=== PATIENT | female | born 1940 | race Caucasian/White ===

== ENCOUNTER 2017-03-23 21:47 | Emergency (ER) | payer OTHER ==
[2017-03-23 21:55] VITALS: BP 154/97; BMI 32.3
--- NOTE | 2017-03-24 00:35 | DR.GENAD ---
HPI - Complaint/Symptoms Chief Complaint:: PT C/O N/V/D AND "LEAKING URINE" ONSET THIS AM. C/O ABD AND BACK PAIN. STATES HER ARTHRITIS IS ALSO ACTING UP Self Treatment fo Chief Complaint: ALEVE WITH NO RELIEF - Source History Provided: Patient - Mode of Arrival Mode of Arrival: Ambulatory - Timing Onset of Chief Complaint: 03/23/17 PMH - PMH Past Medical History: Yes Past Medical History: Diabetes, Hypertension Past Surgical History: Yes Surgical History: Ortho Surgery Past Surgical History Comment: STENTS IN HEART - Family History History of Family Medical Conditions: Yes Family Medical History: Diabetes Mellitus, Cancer, Hypertension - infectious screening Have you traveled outside the country in the last 6 months?: No ROS - Review of Systems Eyes: No Symptoms Reported ENTM: No Symptoms Reported Respiratoy: No Symptoms Reported Cardiovascular: No Symptoms Reported Gastrointestinal/Abdominal: No Symptoms Reported Genitourinary: No Symptoms Reported Neurological: No Symptoms Reported Musculoskeletal: No Symptoms Reported Integumentary: No Symptoms Reported Hematologic/Lymphatic: No Symptoms Reported Endocrine: No Symptoms Reported Psychiatric: No Symptoms Reported All Other Systems: Reviewed and Negative PE - Vital Signs Vitals: Temperature 98.8 F Pulse Rate 79 Respiratory Rate 18 Blood Pressure 154/97 O2 Sat by Pulse Oximetry 96 - General General Appearance: Alert, In No Apparent Distress - Head Head Exam: Normal Inspection, Atraumatic - Eyes Eye exam: Normal Appearance, PERRL, EOMI - ENT ENT Exam: Normal Exam External Ear Exam: Normal External Inspection TM/Canal Exam: Bilateral Normal Nose Exam: Normal Nose Exam Mouth Exam: Normal Inspection Throat Exam: Normal Inspection - Neck Neck Exam: Normal Inspection, Full ROM - Chest Chest Inspection: Normal Inspection, Symmetric Chest Wall Rise - Respiratory Respiratory Exam: Normal Lung Sounds Bilat Respiratory Exam: Bilateral Clear to Auscultation - Cardiovascular Cardiovascular Exam: Regular Rate, Normal Rhythm - Abdominal Exam Abdominal Exam: Normal Inspection, Normal Bowel Sounds, Distention Abdominal Tenderness: Suprapubic - Extremities Extremities Exam: Normal Inspection, Full ROM - Back Back Exam: Normal Inspection, Full ROM - Neurologic Neurological Exam: Alert, Oriented X3, CN II-XII Intact - Psychiatric Psychiatric Exam: Normal Affect, Normal Mood - Skin Skin Exam: Warm, Dry, Intact ROR - Labs Reviewed Laboratory Results Reviewed?: Yes (low potassium) Result Diagrams: 03/24/17 01:20 03/24/17 01:20 Laboratory: WBC 10.3 X10^3/uL (3.6-10.0) H 03/24/17 01:20 RBC 5.17 X10^6/uL (3.5-5.4) 03/24/17 01:20 Hgb 14.0 g/dL (12.0-16.0) 03/24/17 01:20 Hct 40.7 % (36.0-47.0) 03/24/17 01:20 MCV 78.7 fL (80.0-100.0) L 03/24/17 01:20 MCH 27.1 pg (27.0-34.0) 03/24/17 01:20 MCHC 34.4 g/dL (33.0-35.0) 03/24/17 01:20 RDW 16.3 % (11.6-16.5) 03/24/17 01:20 Plt Count 230 X10^3/uL (150.0-450.0) 03/24/17 01:20 MPV 10.1 fL (7.4-11.0) 03/24/17 01:20 Neut % 75.4 % (42.0-75.0) H 03/24/17 01:20 Lymph % 14.8 % (21.0-51.0) L 03/24/17 01:20 [place] % 8.6 % (0.0-13.0) 03/24/17 01:20 Eos % 0.6 % (0.9-2.9) L 03/24/17 01:20 Baso % 0.6 % (0.2-1.0) 03/24/17 01:20 Neut # 7.8 x10^3/uL (2.2-4.8) H 03/24/17 01:20 Lymph # 1.5 X10^3/uL (1.3-2.9) 03/24/17 01:20 [place] # 0.9 x10^3/uL (0.3-0.8) H 03/24/17 01:20 Eos # 0.1 x10^3/uL (0.0-0.2) 03/24/17 01:20 Baso # 0.1 X10^3/uL (0.0-0.1) 03/24/17 01:20 Absolute Nucleated RBC 0.0 /100WBC 03/24/17 01:20 Sodium 141 mmol/L (136-145) 03/24/17 01:20 Corrected Sodium 141 mmol/L (136-145) 03/24/17 01:20 Potassium 3.3 mmol/L (3.5-5.1) L 03/24/17 01:20 Chloride 101 mmol/L (98-107) 03/24/17 01:20 Carbon Dioxide 28.2 mmol/L (21-32) 03/24/17 01:20 BUN 22 mg/dL (7-18) H 03/24/17 01:20 Creatinine 1.00 mg/dL (0.55-1.02) 03/24/17 01:20 Est GFR (MDRD) Af Amer > 60 (>60) 03/24/17 01:20 Est GFR (MDRD) Non-Af 57 (>60) L 03/24/17 01:20 Glucose 120 mg/dL (65-99) H 03/24/17 01:20 Calcium 7.8 mg/dL (8.5-10.1) L 03/24/17 01:20 Corrected Calcium TNP 03/24/17 01:20 Total Bilirubin 0.50 mg/dL (0.2-1.0) 03/24/17 01:20 AST 28 Units/L (15-37) 03/24/17 01:20 ALT 32 Units/L (12-78) 03/24/17 01:20 Alkaline Phosphatase 86 Units/L (46-116) 03/24/17 01:20 C-Reactive Protein 45.90 mg/L (0-3.0) H 03/24/17 01:20 Total Protein 7.1 g/dL (6.4-8.2) 03/24/17 01:20 Albumin 3.4 g/dL (3.4-5.0) 03/24/17 01:20 Globulin 3.7 g/dL (2.5-4.5) 03/24/17 01:20 Albumin/Globulin Ratio 0.9 Ratio (1.1-2.1) L 03/24/17 01:20 Specimen Type Clean catch urine 03/24/17 02:23 Urine Color Dark yellow (YELLOW) 03/24/17 02:23 Urine Appearance Slightly hazy (CLEAR) 03/24/17 02:23 Urine pH 5.0 (5.0 - 8.0) 03/24/17 02:23 Ur Specific [place] 1.015 (1.000-1.030) 03/24/17 02:23 Urine Protein 3+ (NEGATIVE) 03/24/17 02:23 Urine Glucose (UA) Negative (NEGATIVE) 03/24/17 02:23 Urine Ketones Negative (NEGATIVE) 03/24/17 02:23 Urine Occult Blood Negative (NEGATIVE) 03/24/17 02:23 Urine Nitrite Negative (NEGATIVE) 03/24/17 02:23 Urine Bilirubin 1+ (NEGATIVE) 03/24/17 02:23 Urine Urobilinogen 2+ (NORMAL) 03/24/17 02:23 Ur Leukocyte Esterase 1+ (NEGATIVE) 03/24/17 02:23 Urine RBC 0-2 /HPF (NEGATIVE) 03/24/17 02:23 Urine WBC 6-8 /HPF (NEGATIVE) 03/24/17 02:23 Ur Squamous Epith Cells Moderate /HPF (NEGATIVE) 03/24/17 02:23 Urine Bacteria 1+ /HPF (NEGATIVE) 03/24/17 02:23 Hyaline Casts Few /LPF (NEGATIVE) 03/24/17 02:23 Urine Mucus Many /HPF (NEGATIVE) 03/24/17 02:23 Ur Culture Indicated? Yes/culture set up 03/24/17 02:23 H. pylori IgG Antibody Negative (NEGATIVE) 03/24/17 01:20 Streptococcus Screen Negative (NEGATIVE) 03/24/17 01:05 - XRAY XRAY Interpreted by: Radiologist (Flat/Upright Abdomen: Demonstrates a normal bowel gas pattern inderterminate small calcifications lateral to the left L1 transverse process this reppresents calcifications pancrease versus renal stones , The bony structures are grossly intact.; Chest: cardiomegaly without acute airspace disease or CHF) - Diagnosis Discharge Problem: Acute viral disease - Discharge Plan Condition: Stable - Follow ups/Referrals Follow ups/Referrals: Lynne Mcdonald [Primary Care Provider] - 3 days - Instructions
[2017-03-24] MEDS ORDERED: NS 1000 ML 1,000 ML IV ONE (00:37)
[2017-03-24] MEDS ORDERED: BENTYL I.M. INJ 10 MG IM ONE ×2 (00:38→00:40)
[2017-03-24] MEDS ORDERED: NS 1000 ML 1,000 ML ONE (00:39)
[2017-03-24 01:23] LABS: BASOPHILS # (AUTO) 0.1 X10^3/uL (0.0-0.1); BASOPHILS % (AUTO) 0.6 % (0.2-1.0); EOSINOPHILS # (AUTO) 0.1 x10^3/uL (0.0-0.2); EOSINOPHILS % (AUTO) 0.6 % (0.9-2.9); HEMATOCRIT 40.7 % (36.0-47.0); LYMPHOCYTES # (AUTO) 1.5 X10^3/uL (1.3-2.9); LYMPHOCYTES % (AUTO) 14.8 % (21.0-51.0); MEAN CORPUSCULAR HEMOGLOBIN 27.1 pg (27.0-34.0); MEAN CORPUSCULAR HGB CONC 34.4 g/dL (33.0-35.0); MEAN CORPUSCULAR VOLUME 78.7 fL (80.0-100.0); MEAN PLATELET VOLUME 10.1 fL (7.4-11.0); MONOCYTES # (AUTO) 0.9 x10^3/uL (0.3-0.8); MONOCYTES % (AUTO) 8.6 % (0.0-13.0); NEUTROPHILS # (AUTO) 7.8 x10^3/uL (2.2-4.8); NEUTROPHILS % (AUTO) 75.4 % (42.0-75.0); PLATELET COUNT 230 X10^3/uL (150.0-450.0); RED BLOOD COUNT 5.17 X10^6/uL (3.5-5.4); RED CELL DISTRIBUTION WIDTH 16.3 % (11.6-16.5); WHITE BLOOD COUNT 10.3 X10^3/uL (3.6-10.0)
[2017-03-24 01:43] LABS: ALANINE AMINOTRANSFERASE 32 Units/L (12-78); ALBUMIN 3.4 g/dL (3.4-5.0); ALKALINE PHOSPHATASE 86 Units/L (46-116); ASPARTATE AMINO TRANSFERASE 28 Units/L (15-37); BLOOD UREA NITROGEN 22 mg/dL (7-18); CALCIUM 7.8 mg/dL (8.5-10.1); CARBON DIOXIDE 28.2 mmol/L (21-32); CHLORIDE 101 mmol/L (98-107); COR NA(FOR HYPERGLY) 141 mmol/L (136-145); SODIUM 141 mmol/L (136-145); TOTAL PROTEIN 7.1 g/dL (6.4-8.2); eGFR BLACK RACES > 60 (>60); eGFR NON BLACK RACES 57 (>60)
[2017-03-24] MEDS ORDERED: POTASSIUM CHLORIDE LIQ 20 MEQ UDC PO ONE (02:10)
[2017-03-24] MEDS ORDERED: ZOFRAN INJ 4 MG VIAL IVP ONE (02:16)
[2017-03-24] MEDS ORDERED: ZOFRAN INJ 4 MG VIAL ONE (02:18)
[2017-03-24] MEDS ORDERED: POTASSIUM CHLORIDE LIQ 20 MEQ UDC ONE (02:18)
[2017-03-24 02:52] LABS: BILIRUBIN,URINE 1+ (NEGATIVE); BLOOD/HEMOGLOBIN,URINE NEGATIVE (NEGATIVE); GLUCOSE, URINE NEGATIVE (NEGATIVE); KETONES,URINE NEGATIVE (NEGATIVE); LEUKOCYTE ESTERASE ,URINE 1+ (NEGATIVE); NITRITES,URINE NEGATIVE (NEGATIVE); PROTEIN,URINE 3+ (NEGATIVE); UROBILINOGEN,URINE 2+ (NORMAL)
--- NOTE | 2017-03-24 02:58 | RAD ---
Acute abdominal series Indication: Abdominal pain with nausea and vomiting Comparison: None available Findings: The trachea is midline. The cardiac silhouette is enlarged. The lungs are clear without focal infil trate or effusion. The bony thorax is unremarkable. A stimulator catheter is noted projecting over the mid thoracic spine likely within the Flat and upright evaluation of the abdomen demonstrates a normal bowel gas pattern indeterminate smal l calcifications lateral to the left L1 transverse process this represents calcifications pancreas ve rsus renal stones. The bony structures are grossly intact. IMPRESSION: 1. Cardiomegaly without acute airspace disease or CHF 2. Small round calcific densities lateral to the left L1 transverse process are indeterminate potent ially these represent pancreatic calcifications versus proximal ureteral stones. 3.Nonobstructive bowel gas pattern. Reported By:
[2017-03-24 03:02] LABS: APPEARANCE,URINE SLIGHTLY HAZY (CLEAR); BACTERIA,URINE 1+ /HPF (NEGATIVE); COLOR,URINE DARK YELLOW (YELLOW); HYALINE CASTS, URINE FEW /LPF (NEGATIVE); MUCUS,URINE MANY /HPF (NEGATIVE); RBC,URINE 0-2 /HPF (NEGATIVE); SQUAMOUS EPITHELIAL CELL,UR MODERATE /HPF (NEGATIVE)
[2017-03-24] MEDS ORDERED: TORADOL 30 MG VIAL IVP ONE (03:10)
[2017-03-24] MEDS ORDERED: CIPRO TAB 500 MG PO ONE ×2 (03:23→03:27)
[2017-03-24] MEDS ORDERED: TORADOL 30 MG VIAL ONE (03:26)
== END 2017-03-24 03:30 | disposition home or self-care (01) ==
LOC: ER 21:58
DX: R10.84 Generalized abdominal pain (principal); B34.9 Viral infection, unspecified; I51.7 Cardiomegaly; R14.3 Flatulence
CPT/HCPCS: 36415; 74022; 80053; 81001; 85025; 86140; 86677; 87070; 87086; 87880; 96365; 96372; 96374; 96375; 99283; A4222; J0500; J1885; J2405

== ENCOUNTER → 2017-06-29 | Outpatient (CLI) | payer OTHER ==
--- NOTE | 2017-06-30 07:00 | RAD ---
HISTORY: Acute bronchitis Study: Chest PA and lateral Comparison: 09/10/2012, report Findings: The heart is mildly enlarged. No congestive heart failure is noted. The aorta is ectatic and calcifie d. The lung suárez are clear. No pleural effusions are identified. There is a spinal cord stimulator at the lower thoracic level. IMPRESSION: Mild cardiomegaly without congestive heart failure Lungs clear Reported By:
== END ==
LOC: RAD 15:39
PROVIDERS: ATTEND Nurse Practitioner Family
DX: J20.9 Acute bronchitis, unspecified (principal)
CPT/HCPCS: 71046

== ENCOUNTER → 2017-09-01 | Outpatient (CLI) | payer OTHER ==
[~2017-09-01] MED LIST: NS 100 ML IV 100 ML IV ONE
[2017-09-01 10:04] LABS: CREATININE 0.78 mg/dL (0.55-1.02)
--- NOTE | 2017-09-01 11:45 | CT ---
CT CHEST WITH IV CONTRAST HISTORY: Lower chest pain Comparison: None Technique: Multiple axial images of the chest were obtained from the thoracic inlet to the upper abdo men after the administration of IV contrast.Dose reduction techniques including Automated Exposure Co ntrol (AEC) and adjustment of mA and kV were utlized. Findings: Mild cardiomegaly. No pericardial effusion. Ascending aorta measures 4 cm. No suspicious mediastinal or axillary lymph nodes. Although not optimized to detect pulmonary embolism, no large central pulmon martin emboli are seen. No focal consolidations, pleural effusions or pneumothorax. Airways are patent. No suspicious pulmon martin nodules or masses. Hepatic steatosis. No aggressive osseous lesions. IMPRESSION: 1. No source of patient's chest pain is identified on this examination. 2. Borderline aneurysmal ascending aorta. 3. Cardiomegaly. Reported By:
== END | disposition home or self-care (01) | DRG 192 ==
LOC: RAD 09:31
PROVIDERS: ATTEND Nurse Practitioner Family
DX: J44.9 Chronic obstructive pulmonary disease, unspecified (principal); I51.7 Cardiomegaly
CPT/HCPCS: 36415; 71260; 82565; 84520; A4222